=== PATIENT | male | born 1940 | race Asian ===

== ENCOUNTER → 2016-08-31 | Outpatient (CLI) | payer MEDICARE, OTHER ==
[~2016-08-31] MED LIST: OMNIPAQUE 350 MG/ML, 75ML BOTTLE ONE
== END | disposition home or self-care (01) ==
LOC: CFH 12:43
PROVIDERS: ATTEND Family Medicine
DX: J43.9 Emphysema, unspecified (principal); I70.0 Atherosclerosis of aorta; J47.9 Bronchiectasis, uncomplicated; J84.10 Pulmonary fibrosis, unspecified; K76.0 Fatty (change of) liver, not elsewhere classified; M51.34 Other intervertebral disc degeneration, thoracic region; K43.9 Ventral hernia without obstruction or gangrene
CPT/HCPCS: 71260; Q9967